=== PATIENT | male | born 1975 | race Caucasian/White ===

== ENCOUNTER 2019-11-15 03:14 | Emergency (ER) | payer OTHER ==
[~2019-11-15] VITALS: Ht 177.8 cm; Wt 113.4 kg
[~2019-11-15 03:14] MED LIST: ANTIVERT/2525 M1 PO; AUGMENTIN 875 M1 TA1 PO; VICODIN ES 7501 TAB PO; ZOFRAN ODT4 MG SL
[2019-11-15] MEDS ORDERED: PROTONIX40 MG PO (05:49)
== END 2019-11-15 06:20 | disposition home or self-care (01) ==
LOC: ED 03:14
DX: T18.128A Food in esophagus causing other injury, initial encounter (principal); Z79.899 Other long term (current) drug therapy; X58.XXXA Exposure to other specified factors, initial encounter; Y93.89 Activity, other specified; Y92.89 Other specified places as the place of occurrence of the external cause; Y99.8 Other external cause status

== ENCOUNTER 2019-12-10 12:57 | Emergency (ER) | payer OTHER ==
[~2019-12-10] VITALS: Wt 113.4 kg
[~2019-12-10 12:57] MED LIST changes: +PROTONIX40 MG PO
[2019-12-10] MEDS ORDERED: METHOCARBAMOL500 M1 PO (15:46)
[2019-12-10] MEDS ORDERED: NAPROSYN500 MG PO (15:46)
== END 2019-12-10 15:52 | disposition home or self-care (01) ==
LOC: ED 12:57
DX: S46.912A Strain of unspecified muscle, fascia and tendon at shoulder and upper arm level, left arm, initial encounter (principal); Z98.890 Other specified postprocedural states; Z79.899 Other long term (current) drug therapy; W18.30XA Fall on same level, unspecified, initial encounter; Y93.89 Activity, other specified; Y92.89 Other specified places as the place of occurrence of the external cause; Y99.9 Unspecified external cause status

== ENCOUNTER → 2022-03-27 | Outpatient (CLI) | payer OTHER ==
[~2022-03-27] MED LIST changes: +METHOCARBAMOL500 M1 PO; +NAPROSYN500 MG PO
[2022-03-27 08:10] LABS: BASO # 0.1 10*3/uL (0.0-0.1); EOS # 0.1 10*3/uL (0.0-0.4); EOS % 1.6 % (1.0-4.0); HEMATOCRIT 47.6 % (42.0-52.0); LYMPH % 31.4 % (27.0-41.0); MEAN CELL VOLUME 84.2 fl (80.0-94.0); MEAN CORPUSCULAR HGB 29.2 pg (27.0-31.0); MEAN CORPUSCULAR HGB CONC 34.7 g/dl (33.0-37.0); MEAN PLATELET VOLUME 9.7 fl (9.6-12.3); MONO # 0.5 10*3/uL (0.1-1.0); MONO % 8.4 % (3.0-9.0); NEUT # 3.6 10*3/uL (2.3-7.9); NEUT % 57.3 % (47.0-73.0); PLATELET COUNT AUTOMATED 246 10*3/uL (130-400); RED BLOOD COUNT 5.65 10*6/uL (4.50-5.90); RED CELL DISTRI WIDTH 12.2 % (0-14.5); WHITE BLOOD COUNT 6.3 10*3/uL (4.8-10.8)
[2022-03-27 08:56] LABS: ALKALINE PHOSPHATASE 81 U/L (46-116); BUN 13 mg/dl (9-23); CHLORIDE 104 mmol/L (98-107); CHOLESTEROL 156 mg/dL (<200); CREATININE 0.93 mg/dL (0.70-1.30); LDL CHOLESTEROL 91 mg/dL (9-159); POTASSIUM 3.9 mmol/L (3.4-5.1); SGPT/ALT 12 U/L (10-49); SODIUM 140 mmol/L (136-145); T3 UPTAKE 27.3 % (22.4-36.7); THYROID STIM HORMONE (HS) 1.938 uIU/ml (0.550-4.780); THYROXINE (T4) TOTAL 9.7 ug/dl (4.5-10.9); TOTAL PROTEIN 7.4 gm/dL (6.0-8.0); TRIGLYCERIDES 179 mg/dl (<150)
[2022-03-27 13:45] LABS: VITAMIN D, 25-HYDROXY 21.3 ng/mL (30-100)
[2022-03-30 13:07] LABS: TESTOSTERONE FREE, (DIRECT) 5.6 pg/mL (6.8-21.5)
== END | disposition home or self-care (01) ==
LOC: LAB 07:49
PROVIDERS: ATTEND Internal Medicine
DX: M19.071 Primary osteoarthritis, right ankle and foot (principal); M19.072 Primary osteoarthritis, left ankle and foot; Z12.5 Encounter for screening for malignant neoplasm of prostate; I10 Essential (primary) hypertension; E03.9 Hypothyroidism, unspecified; D51.1 Vitamin B12 deficiency anemia due to selective vitamin B12 malabsorption with proteinuria; E29.1 Testicular hypofunction; K58.9 Irritable bowel syndrome, unspecified; R53.82 Chronic fatigue, unspecified; K21.9 Gastro-esophageal reflux disease without esophagitis

== ENCOUNTER 2024-05-19 18:22 | Emergency (ER) | payer SELFPAY ==
[~2024-05-19] VITALS: Ht 177.8 cm; Wt 120.2 kg
[2024-05-19] MEDS ORDERED: Tdap Vaccine 0.5 ML SYR (Adult Vaccine) IM ONE (18:30)
[2024-05-19] MEDS ORDERED: Ondansetron Hydrochloride 4 MG TAB SL ONE (19:15)
[2024-05-19] MEDS ORDERED: Ketorolac Tromethamine 30 MG/ML VIAL IV ONE (21:05)
[2024-05-19] MEDS ORDERED: METHOCARBAMOL 750 MG TAB PO ONE (21:05)
[2024-05-19] MEDS ORDERED: Bacitracin Zinc 14 GM TUBE T ONE (21:05)
[2024-05-19] MEDS ORDERED: NAPROSYN500 MG PO (21:06)
[2024-05-19] MEDS ORDERED: METHOCARBAMOL750 M1 PO (21:06)
== END 2024-05-19 21:20 | disposition home or self-care (01) ==
LOC: ED 18:22
DX: S01.01XA Laceration without foreign body of scalp, initial encounter (principal); R51.9 Headache, unspecified; Z98.890 Other specified postprocedural states; V80.010A Animal-rider injured by fall from or being thrown from horse in noncollision accident, initial encounter; Y93.89 Activity, other specified; Y92.009 Unspecified place in unspecified non-institutional (private) residence as the place of occurrence of the external cause; Y99.8 Other external cause status